=== PATIENT | female | born 1960 | race Caucasian/White ===

== ENCOUNTER 2018-01-15 17:16 | Outpatient (REF) | payer MEDICARE, MEDICAID, SELFPAY ==
[2018-01-15 20:56] LABS: Abs Immature Grans 0.01 k/cumm (0.0-0.09); Absolute Basophil Count 0.01 k/cumm (0.0-0.2); Absolute Eosinophil Count 0.01 k/cumm (0.0-0.7); Absolute Lymphocyte Count 2.43 k/cumm (1.2-3.4); Absolute Monocyte Count 0.82 k/cumm (0.11-0.7); Absolute Neutrophil Count 2.73 k/cumm (1.2-6.7); Basophils % 0.2; Eosinophils % 0.2; HCT 39.7 % (36.0-46.0); HGB 12.9 g/dL (12.0-15.5); Immature Grans % 0.2; Lymphocytes % 40.4; Mean Corp. HGB Concentration 32.5 g/dL (32.0-36.0); Mean Corpuscular Hemoglobin 29.6 pg (27.0-33.0); Mean Corpuscular Volume 91.1 fL (80-95); Mean Platelet Volume 11.1 fL (8.0-11.0); Monocytes % 13.6; Neutrophils % 45.4; Platelet Count 260 x1000/uL (130-400); RBC 4.36 m/cumm (4.00-5.20); RBC Distribution Width 13.8 % (11.7-14.6); White Blood Cell Count 6.01 k/cumm (4.4-10.8)
[2018-01-15 21:01] LABS: Albumin 3.7 g/dL (3.4-5.0); BUN 11 mg/dL (7-18); Bilirubin, Total 0.4 mg/dL (0.2-1.0); Chloride 99 mmol/L (98-107); Potassium 4.1 mmol/L (3.5-5.1); Sodium 138 mmol/L (136-145); Uric Acid 5.2 mg/dL (2.6-6.0)
[2018-01-15 21:40] LABS: ALT 32 U/L (12-78); AST 22 U/L (15-37); Alkaline Phosphatase 61 U/L (46-116); Anion Gap 7.5 mmol/L (3-11); CO2 31.5 mmol/L (21.0-32.0); CREATININE 0.69 mg/dL (0.55-1.02); Calcium 9.2 mg/dL (8.5-10.1); Glucose 94 mg/dL (70-100); Total Protein 7.2 g/dL (6.4-8.2)
== END 2018-01-15 17:36 ==
LOC: NCHCN 17:16
PROVIDERS: PCP Family Medicine; Visit Provider Family Medicine
DX: R15.1 Fecal smearing (principal); R10.9 Unspecified abdominal pain; M25.561 Pain in right knee
CPT/HCPCS: 80053; 84550; 85025

== ENCOUNTER 2021-03-22 11:02 | Outpatient (REF) | payer MEDICARE, MEDICAID, SELFPAY ==
[2021-03-22 20:37] LABS: Anion Gap 6.9 mmol/L (3-11); BUN 22 mg/dL (7-18); CO2 32.1 mmol/L (21.0-32.0); CREATININE 0.7 mg/dL (0.55-1.02); Calcium 8.7 mg/dL (8.5-10.1); Chloride 104 mmol/L (98-107); Glucose 93 mg/dL (74-106); Magnesium 1.8 mg/dL (1.8-2.4); Potassium 4.2 mmol/L (3.5-5.1); Sodium 143 mmol/L (136-145); TSH 1.84 uIU/mL (0.36-3.74); Vitamin B12 185 pg/mL (193-986)
[2021-03-22 21:11] LABS: Hemoglobin A1C 5.7 % (<5.7)
== END 2021-03-22 11:03 | disposition home or self-care (01) ==
LOC: NCHCN 11:02
PROVIDERS: PCP Family Medicine; Visit Provider Nurse Practitioner Family
DX: R73.03 Prediabetes (principal); R63.4 Abnormal weight loss; G40.909 Epilepsy, unspecified, not intractable, without status epilepticus; F32.9 Major depressive disorder, single episode, unspecified; Z79.899 Other long term (current) drug therapy
CPT/HCPCS: 80048; 82607; 83036; 83735; 84443

== ENCOUNTER 2021-06-08 20:42 | Outpatient (REF) | payer MEDICARE, MEDICAID, SELFPAY ==
[2021-06-08 20:38] LABS: Abs Immature Grans 0.01 10^3/uL (0.0-0.06); Absolute Basophil Count 0.02 10^3/uL (0.0-0.2); Absolute Eosinophil Count 0.02 10^3/uL (0.0-0.7); Absolute Lymphocyte Count 0.74 10^3/uL (1.2-3.4); Absolute Monocyte Count 0.58 10^3/uL (0.1-0.8); Absolute Neutrophil Count 2.45 10^3/uL (1.2-6.7); Basophils % 0.5; Eosinophils % 0.5; HCT 40.6 % (36.0-46.0); HGB 12.7 g/dL (11.2-15.7); Immature Grans % 0.3; Lymphocytes % 19.4; MCH 29.9 pg (27.0-33.0); MCHC 31.3 % (32.0-36.0); MCV 95.5 fL (80-95); MPV 12.2 fL (8.0-11.0); Monocytes % 15.2; Neutrophils % 64.1; Nucleated RBC 0 %; Platelet Count 222 10^3/uL (130-400); RBC 4.25 10^6/uL (3.93-5.22); RDW 13.2 % (11.7-14.6); RDW-SD 45.9 fL; WBC 3.82 10^3/uL (4.4-10.8)
[2021-06-08 21:31] LABS: ALT 14 U/L (14-59); AST 12 U/L (15-37); Alkaline Phosphatase 57 U/L (46-116); Anion Gap 6.2 mmol/L (3-11); BUN 30 mg/dL (7-18); Bilirubin, Total 0.5 mg/dL (0.2-1.0); CO2 32.8 mmol/L (21.0-32.0); CREATININE 0.8 mg/dL (0.55-1.02); Calcium 9.2 mg/dL (8.5-10.1); Chloride 102 mmol/L (98-107); Glucose 97 mg/dL (74-106); Potassium 3.8 mmol/L (3.5-5.1); Sodium 141 mmol/L (136-145); Total Protein 7.5 g/dL (6.4-8.2)
== END 2021-06-08 20:43 | disposition home or self-care (01) ==
LOC: NCHCN 20:42
PROVIDERS: PCP Family Medicine; Visit Provider Nurse Practitioner Family
DX: R73.03 Prediabetes (principal); R63.4 Abnormal weight loss; F32.9 Major depressive disorder, single episode, unspecified; E53.8 Deficiency of other specified B group vitamins
CPT/HCPCS: 80053; 85025

== ENCOUNTER 2021-09-15 13:16 | Outpatient (REF) | payer MEDICARE, MEDICAID, SELFPAY ==
[2021-09-15 16:14] LABS: Absolute Basophil Count 0.02 10^3/uL (0.0-0.2); Absolute Eosinophil Count 0.05 10^3/uL (0.0-0.7); Absolute Lymphocyte Count 1.11 10^3/uL (1.2-3.4); Absolute Monocyte Count 0.46 10^3/uL (0.1-0.8); Absolute Neutrophil Count 1.49 10^3/uL (1.2-6.7); Basophils % 0.6; Eosinophils % 1.6; HCT 39.5 % (36.0-46.0); HGB 12.2 g/dL (11.2-15.7); Lymphocytes % 35.5; MCH 29.8 pg (27.0-33.0); MCHC 30.9 % (32.0-36.0); MCV 97 fL (80-95); MPV 12.1 fL (8.0-11.0); Monocytes % 14.7; Neutrophils % 47.6; Platelet Count 199 10^3/uL (130-400); RBC 4.09 10^6/uL (3.93-5.22); RDW-SD 46.6 fL; WBC 3.13 10^3/uL (4.4-10.8)
[2021-09-15 19:19] LABS: VALPROIC ACID 66.2 ug/mL
[2021-09-15 19:43] LABS: Vitamin B12 824 pg/mL (193-986)
== END 2021-09-15 13:17 | disposition home or self-care (01) ==
LOC: NCHCN 13:16
PROVIDERS: PCP Family Medicine; Visit Provider Nurse Practitioner Family
DX: G40.909 Epilepsy, unspecified, not intractable, without status epilepticus (principal); Z51.81 Encounter for therapeutic drug level monitoring; R63.4 Abnormal weight loss; E53.8 Deficiency of other specified B group vitamins
CPT/HCPCS: 80164; 82607; 85025

== ENCOUNTER 2021-12-20 20:54 | Outpatient (REF) | payer MEDICARE, MEDICAID, SELFPAY ==
[2021-12-20 21:14] LABS: Abs Immature Grans 0.01 10^3/uL (0.0-0.06); Absolute Basophil Count 0.02 10^3/uL (0.0-0.2); Absolute Eosinophil Count 0.02 10^3/uL (0.0-0.7); Absolute Lymphocyte Count 0.75 10^3/uL (1.2-3.4); Absolute Monocyte Count 0.51 10^3/uL (0.1-0.8); Absolute Neutrophil Count 2.37 10^3/uL (1.2-6.7); Basophils % 0.5; Eosinophils % 0.5; HCT 39.1 % (36.0-46.0); HGB 12.8 g/dL (11.2-15.7); Immature Grans % 0.3; Lymphocytes % 20.4; MCH 30.5 pg (27.0-33.0); MCHC 32.7 % (32.0-36.0); MCV 93 fL (80-95); MPV 12.6 fL (8.0-11.0); Monocytes % 13.9; Neutrophils % 64.4; Platelet Count 216 10^3/uL (130-400); RDW 13.2 % (11.7-14.6); RDW-SD 45.3 fL; WBC 3.68 10^3/uL (4.4-10.8)
== END 2021-12-20 20:55 | disposition home or self-care (01) ==
LOC: NCHCN 20:54
PROVIDERS: PCP Family Medicine; Visit Provider Nurse Practitioner Family
DX: D72.819 Decreased white blood cell count, unspecified (principal)
CPT/HCPCS: 85025

== ENCOUNTER 2022-02-11 17:18 | Emergency (ER) | payer MEDICARE, MEDICAID, SELFPAY ==
[2022-02-11 17:28] VITALS: BP 147/81; PULSE 85; RESP 20; TEMP 36.8; O2SAT 95
--- NOTE | 2022-02-11 17:45 | DI.RAD_ITS ---
Exam(s) CT PELVIC WO XR HIP LT COMPLETE AP PELVIS EXAM: XR HIP LT COMPLETE AP PELVIS CLINICAL HISTORY: fall, left hip pain TECHNIQUE: COMPARISON: CT CT PELVIC WO from 02/11/2022 FINDINGS: Radiographs of the left hip and pelvis are interpreted in conjunction with a pelvic CT. 3 radiograph ic views were obtained. CT was obtained with multi slice acquisition and multiplanar reconstruction. There are fractures of the inferior and superior pubic rami. The superior pubic ramus fracture exten ds into the acetabulum centrally with no gross involvement of the articular surface. There is also a nondisplaced fracture of the sacrum on the left adjacent to the SI joint anteriorly. No hip fractur e identified. No additional pelvic fracture seen. Note is made of areas of sclerotic and mixed sclerotic/lytic radiodensity seen in the right iliac bon e and in the sacrum. These findings are nonspecific but the possibility of metastatic disease would have to be raised. Additional evaluation with bone scan is recommended. IMPRESSION: Superior and inferior pubic ramus fractures on the left with superior pubic ramus fracture extending into the acetabulum. Additionally there is a minimally displaced fracture of the sacrum adjacent to the anterior aspect of the left SI joint. Incidental sclerotic and mixed sclerotic/lytic lesions noted in the sacrum and in the pelvis on the r ight' There is some concern for metastatic disease, bone scan recommended for further evaluation. RADIATION DOSE DELIVERED: Total DLP
--- NOTE | 2022-02-11 17:45 | DI.RAD_ITS ---
Exam(s) XR LUMBAR SPINE AP, LAT EXAM: XR LUMBAR SPINE AP, LAT CLINICAL HISTORY: fall injury, low back pain TECHNIQUE: COMPARISON: No exams were available for comparison FINDINGS: Two views were obtained. There are marked degenerative changes of the lumbar spine with mild left co nvex lumbar scoliosis. No evidence of acute lumbar fracture. IMPRESSION: RADIATION DOSE DELIVERED: Total DLP
--- NOTE | 2022-02-11 17:57 | ED.GENADUL_ITS ---
Discharge Plan Disposition Patient Disposition: HOME W/HOME HEALTH SERVICE Condition: Stable Discharge Details Clinical Impression: Pelvic fracture Primary Care Provider: Justino Kumar ED Provider: Annelise Red Home Meds and New Rx's Prescriptions: Continued divalproex [Depakote] 250 mg Tablet,Delayed Release (Dr/Ec) 500 mg PO BID omeprazole 20 mg Capsule,Delayed Release(Dr/Ec) 20 mg PO DAILY sertraline 50 mg Tablet 75 mg PO DAILY aripiprazole [Abilify] 5 mg Tablet 5 mg PO DAILY quetiapine [Seroquel XR] 300 mg Tablet Extended Release 24 Hr 300 mg PO DAILY Myrbetriq 50 mg Tablet Extended Release 24 Hr 50 mg PO DAILY Discharge Instructions Instructions: Pelvic Fracture (ED) Additional Instructions: weight bearing has tolerated, use walker for gait safety and stability ibuprofen 600 mg qid with food for next 5 days with food, then as needed for pain can add acetaminophen 650 mg po qid for breakthrough pain can apply salon pas pain patches to affected areas as directed if helpful. Referrals: Justino Kumar [Primary Care Provider] - (1 week) Medical Decision Making Medical Records Medical records narrative: Mechanical fall with isolated left hip and low back pain. She has been ambulatory. We will check routine lab check Depakote level. UA due to back pain. X-rays to include left hip and pelvis and LS-spine. Reviewed and pelvic fracture noted. Case was discussed with Dr. Vela recommendations are for CAT scan and if she can safely be reambulated follow-up outpatient with orthopedics routine pain management Safely reambulated with a walker which will be provided at discharge. Her caregiver is in agreement with discharged home. Pain is managed after receiving Toradol 30 mg IV acetaminophen 1000 mg IV piggyback and application of 2 lidocaine patches. She will be discharged to home with home health services for further evaluation and recommendations Imaging Data Radiologic Study: Attestation: I personally reviewed and interpreted this imaging study as follows: Imaging: X-Ray (left hip and pelvis) Radiologist's impression: Exam(s) PROCEDURE INFORMATION: Exam: XR Left Hip Exam date and time: 02/11/2022 6:57 PM Age: 61 years old Clinical indication: Injury or trauma; Work related; Blunt trauma (contusions or hematomas); Injury date: 02/11/22; Injury details: Fall, left hip pain TECHNIQUE: Imaging protocol: Radiologic exam of the Left hip. Views: 2 or 3 views hip with pelvis when performed. COMPARISON: No relevant prior studies available. FINDINGS: Bones/joints: There is an acute minimally displaced fracture involving the superior pelvic ramus. The fracture is horizontally oriented and may extend to the acetabular rim. The left femur appears grossly intact. No evidence of joint dislocation. Soft tissues: Unremarkable. IMPRESSION: Minimally displaced fracture of the left superior pubic ramus as described. Dictated and Authenticated by: Joanne High MD. Ordering:STEVE Castelan MD Radiologic Study #2: Imaging: X-Ray (lumbar spine xray) Radiologist's impression: Exam(s) PROCEDURE INFORMATION: Exam: XR Lumbosacral Spine Exam date and time: 02/11/2022 6:58 PM Age: 61 years old Clinical indication: Injury or trauma; Blunt trauma (contusions or hematomas); Injury date: 02/11/22; Injury details: Fall, pain TECHNIQUE: Imaging protocol: Radiologic exam of the lumbosacral spine. Views: 2 or 3 views. COMPARISON: CR XR HIP LT COMPLETE AP PELVIS 02/11/2022 6:57 PM FINDINGS: Bones/joints: No acute fracture in the lumbar spine.? Grossly normal alignment. Soft tissues: Unremarkable. IMPRESSION: No acute findings in the lumbar spine. Dictated and Authenticated by: Joanne High MD. Ordering:STEVE Castelan MD Lab Data Lab results reviewed: Yes I reviewed the patient's lab results. HPI General Date/Time Provider Initiated Documentation: 02/11/22 17:24 . Information obtained by: family (Caregiver) and old records reviewed . HPI Narrative: 61-year-old female patient who lives with a caregiver who had a mechanical fall at home earlier this morning was given APAP for her symptoms continues to have pain complaining of left hip and low back pain. She presented to urgent care who referred her here for evaluation. She has been ambulatory. Denies any other injury. There was no loss of consciousness she has no C-spine tenderness no abdominal pain no other complaints she was previously in her usual state of health. Related Data Home Medications Medication Instructions Recorded Confirmed aripiprazole 5 mg tablet (Abilify) 5 mg PO DAILY 02/11/22 02/11/22 divalproex 250 mg tablet,delayed 500 mg PO BID 02/11/22 02/11/22 release (Depakote) mirabegron 50 mg tablet,extended 50 mg PO DAILY 02/11/22 02/11/22 release 24 hr (Myrbetriq) omeprazole 20 mg capsule,delayed 20 mg PO DAILY 02/11/22 02/11/22 release quetiapine 300 mg tablet,extended 300 mg PO DAILY 02/11/22 02/11/22 release 24 hr (Seroquel XR) sertraline 50 mg tablet 75 mg PO DAILY 02/11/22 02/11/22 Allergies Allergy/AdvReac Type Severity Reaction Status Date / Time Penicillins Allergy Severe Hives Unverified 02/11/22 17:32 aspirin Allergy Unknown Unverified 02/11/22 17:32 General Stated Complaint: Orthopedic RADHA: 3 Review of Systems All systems reviewed & are unremarkable except as noted in HPI and below Musculoskeletal Musculoskeletal: Reports back pain (Low back) and Reports arthralgias (Left hip) PFSH All Active Problems (Updated 02/11/22 @ 20:32 by Annelise Red NP) Pelvic fracture (Acute) Social History Smoking risk assessment performed?: No Exam Const General: cooperative, comfortable, no acute distress, frail appearing and ill a ppearing (Resting tremor) chronically Chest Chest: normal inspection of the chest Resp Effort & Inspection: normal respiratory effort and able to speak in complete sentences Cardio Rate: regular rate Rhythm: regular rhythm Back/Spine/Pelvis Cervical Spine: normal cervical lordosis Skin General skin exam: no rashes or lesions noted Neuro General: patient alert, patient awake, patient oriented x3, moves all extremities and no focal motor deficits Extrem General: normal to inspection and no pedal edema Right upper extremity: normal to inspection Left upper extremity: normal to inspection Right lower extremity: normal to inspection Left lower extremity: normal to inspection and hip/thigh Details: tenderness; no swelling and no deformity; no edema Course Vital Signs Vital signs: Vital Signs Temperature 36.8 C 02/11/22 17:28 Pulse 85 02/11/22 17:28 Respiratory Rate 20 02/11/22 17:28 Blood Pressure 147/81 H 02/11/22 17:28 Pulse Oximetry 95 02/11/22 17:28 Temperature 36.8 C 02/11/22 17:28 Pulse 85 10/07/22 17:28 Respiratory Rate 20 02/11/22 17:28 Blood Pressure 147/81 H 02/11/22 17:28 Pulse Oximetry 95 02/11/22 17:28 Oxygen Delivery Method Room Air 02/11/22 17:28 Oxygen Flow Rate 0 02/11/22 17:28 Pain Level 6 02/11/22 17:28
[2022-02-11] MEDS: Ketorolac 15 MG/ML VIAL IVP (18:21)
[2022-02-11 19:03] LABS: Ammonia 20 umol/L (11-32)
[2022-02-11 19:07] LABS: Abs Immature Grans 0.03 10^3/uL (0.0-0.06); Absolute Basophil Count 0.02 10^3/uL (0.0-0.2); Absolute Eosinophil Count 0.01 10^3/uL (0.0-0.7); Absolute Lymphocyte Count 0.61 10^3/uL (1.2-3.4); Absolute Neutrophil Count 5.52 10^3/uL (1.2-6.7); Basophils % 0.3; Eosinophils % 0.1; HCT 34.7 % (36.0-46.0); HGB 11.3 g/dL (11.2-15.7); Immature Grans % 0.4; Lymphocytes % 8.5; MCH 30.1 pg (27.0-33.0); MCHC 32.6 % (32.0-36.0); MCV 92 fL (80-95); MPV 11.7 fL (8.0-11.0); Monocytes % 13.9; Neutrophils % 76.8; Platelet Count 167 10^3/uL (130-400); RBC 3.76 10^6/uL (3.93-5.22); RDW 12.9 % (11.7-14.6); RDW-SD 43.8 fL; WBC 7.19 10^3/uL (4.4-10.8)
--- NOTE | 2022-02-11 19:25 | DI.VRAD_ITS ---
Addendum created by Joanne High MD on 02/11/2022 9:05:41 PM EDT: Upon further review, there is also a fracture in the left inferior pubic ramus, better evaluated on the follow-up CT. Initial report created on 02/11/2022 7:25:35 PM EDT: PROCEDURE INFORMATION: Exam: XR Left Hip Exam date and time: 02/11/2022 6:57 PM Age: 61 years old Clinical indication: Injury or trauma; Work related; Blunt trauma (contusions or hematomas); Injury date: 02/11/22; Injury details: Fall, left hip pain TECHNIQUE: Imaging protocol: Radiologic exam of the Left hip. Views: 2 or 3 views hip with pelvis when performed. COMPARISON: No relevant prior studies available. FINDINGS: Bones/joints: There is an acute minimally displaced fracture involving the superior pelvic ramus. The fracture is horizontally oriented and may extend to the acetabular rim. The left femur appears grossly intact. No evidence of joint dislocation. Soft tissues: Unremarkable. IMPRESSION: Minimally displaced fracture of the left superior pubic ramus as described. Dictated and Authenticated by: Joanne High MD. Ordering:STEVE Castelan MD
--- NOTE | 2022-02-11 19:29 | DI.VRAD_ITS ---
PROCEDURE INFORMATION: Exam: XR Lumbosacral Spine Exam date and time: 02/11/2022 6:58 PM Age: 61 years old Clinical indication: Injury or trauma; Blunt trauma (contusions or hematomas); Injury date: 02/11/22; Injury details: Fall, pain TECHNIQUE: Imaging protocol: Radiologic exam of the lumbosacral spine. Views: 2 or 3 views. COMPARISON: CR XR HIP LT COMPLETE AP PELVIS 02/11/2022 6:57 PM FINDINGS: Bones/joints: No acute fracture in the lumbar spine. Grossly normal alignment. Soft tissues: Unremarkable. IMPRESSION: No acute findings in the lumbar spine. Dictated and Authenticated by: Joanne High MD. Ordering:STEVE Castelan MD
[2022-02-11 19:31] LABS: Anion Gap 5.5 mmol/L (3-11); BUN 22 mg/dL (7-18); CO2 30.5 mmol/L (21.0-32.0); CREATININE 0.7 mg/dL (0.55-1.02); Chloride 102 mmol/L (98-107); Estimated GFR 97.12 (mL/min/1.73m2); Glucose 122 mg/dL (74-106); Sodium 138 mmol/L (136-145); VALPROIC ACID 56.5 ug/mL
[2022-02-11] MEDS: Lidocaine 5% Patch 2 PATCH TP (19:46)
[2022-02-11] MEDS: ACETAMINOPHEN 1,000 MG/100 ML BTL 400 MG IVPB (19:47)
--- NOTE | 2022-02-11 21:04 | DI.VRAD_ITS ---
PROCEDURE INFORMATION: Exam: CT Pelvis Without Contrast; Skeletal Exam date and time: 02/11/2022 8:09 PM Age: 61 years old Clinical indication: Injury or trauma; Fall; Fracture of pelvis \T\ hip; Left; Traumatic fracture; Pubis (pubic symphysis or rami); Not specified; Injury date: 02/11/22; Injury details: Fractured pelvis TECHNIQUE: Imaging protocol: Computed tomography of the pelvis without contrast. Exam focused on the skeleton. Radiation optimization: All CT scans at this facility use at least one of these dose optimization techniques: automated exposure control; mA and/or kV adjustment per patient size (includes targeted exams where dose is matched to clinical indication); or iterative reconstruction. COMPARISON: CR XR HIP LT COMPLETE AP PELVIS 02/11/2022 6:57 PM FINDINGS: Bones/joints: There is a minimally displaced horizontal fracture involving the left superior pubic ramus, which does extend to the acetabular rim, but does not appear to involve the articular surface of the hip joint (image 29, series 4). A minimally displaced fracture also seen in the left inferior pubic ramus. 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 There is a 1.7 cm round region of sclerosis in the right iliac wing and a focus of sclerosis seen in the left sacral ala measuring 1.3 cm. Soft tissues: Unremarkable. IMPRESSION: 1. Minimally displaced horizontal fracture of the left superior pubic ramus and minimally displaced fracture of the left inferior pubic ramus. No joint dislocation. 2. Nonspecific foci of sclerosis in the right iliac wing and left sacral ala, which are nonspecific. However, correlate with any underlying pathology to exclude osseous malignancy. Dictated and Authenticated by: Joanne High MD. Ordering:STEVE Castelan MD
[2022-02-11] MEDS: Divalproex 500 MG TABEC PO (21:53)
== END 2022-02-11 21:59 | disposition home health service (06) ==
PROVIDERS: Emergency Provider Nurse Practitioner Acute Care; PCP Family Medicine
DX: S32.9XXA Fracture of unspecified parts of lumbosacral spine and pelvis, initial encounter for closed fracture (principal); W19.XXXA Unspecified fall, initial encounter; Y92.009 Unspecified place in unspecified non-institutional (private) residence as the place of occurrence of the external cause
CPT/HCPCS: 80048; 96374; 96375; 99284; 72100; 72192; 73502; 80164; 82140; 85025; J0131; J1885; J3490

== ENCOUNTER 2022-10-13 17:54 | Outpatient (REF) | payer MEDICARE, MEDICAID, SELFPAY ==
[2022-10-13 18:11] LABS: Absolute Basophil Count 0.04 10^3/uL (0.0-0.2); Absolute Eosinophil Count 0.05 10^3/uL (0.0-0.7); Absolute Lymphocyte Count 0.81 10^3/uL (1.2-3.4); Absolute Monocyte Count 0.59 10^3/uL (0.1-0.8); Absolute Neutrophil Count 2.33 10^3/uL (1.2-6.7); Eosinophils % 1.3; HCT 39.9 % (36.0-46.0); HGB 12.9 g/dL (11.2-15.7); Lymphocytes % 21.2; MCH 30.4 pg (27.0-33.0); MCHC 32.3 % (32.0-36.0); MCV 94 fL (80-95); MPV 12.1 fL (8.0-11.0); Monocytes % 15.4; Neutrophils % 61.1; Platelet Count 210 10^3/uL (130-400); RBC 4.24 10^6/uL (3.93-5.22); RDW 13.5 % (11.7-14.6); RDW-SD 46.4 fL; WBC 3.82 10^3/uL (4.4-10.8)
[2022-10-13 18:47] LABS: BUN 26 mg/dL (7-18); CREATININE 0.7 mg/dL (0.55-1.02); Calcium 9.1 mg/dL (8.5-10.1); Calculated LDL 138 mg/dL (<100); Chloride 105 mmol/L (98-107); Cholesterol 207 mg/dL (<200); Estimated GFR 96.52 (mL/min/1.73m2); Glucose 91 mg/dL (74-106); HDL Cholesterol 51 mg/dL (40-60); Potassium 3.7 mmol/L (3.5-5.1); Sodium 143 mmol/L (136-145); TSH 0.96 uIU/mL (0.36-3.74); Triglyceride 93 mg/dL (<150); Vitamin B12 1264 pg/mL (193-986)
[2022-10-13 18:55] LABS: Hemoglobin A1C 5.7 % (<5.7)
== END 2022-10-13 17:55 | disposition home or self-care (01) ==
LOC: NCHCN 17:54
PROVIDERS: PCP Family Medicine; Visit Provider Nurse Practitioner Family
DX: D72.819 Decreased white blood cell count, unspecified (principal); R73.03 Prediabetes; E53.8 Deficiency of other specified B group vitamins; R63.4 Abnormal weight loss; F32.89 Other specified depressive episodes; Z79.899 Other long term (current) drug therapy; R79.89 Other specified abnormal findings of blood chemistry
CPT/HCPCS: 80048; 80061; 82607; 83036; 84443; 85025

== ENCOUNTER 2023-05-29 15:00 | Outpatient (REF) | payer MEDICARE, MEDICAID, SELFPAY ==
[2023-05-29 15:21] LABS: Absolute Basophil Count 0.03 10^3/uL (0.0-0.2); Absolute Eosinophil Count 0.08 10^3/uL (0.0-0.7); Absolute Lymphocyte Count 1.04 10^3/uL (1.2-3.4); Absolute Monocyte Count 0.48 10^3/uL (0.1-0.8); Absolute Neutrophil Count 1.35 10^3/uL (1.2-6.7); Eosinophils % 2.7; HCT 35.9 % (36.0-46.0); HGB 11.5 g/dL (11.2-15.7); Lymphocytes % 34.9; MCH 29.5 pg (27.0-33.0); MCV 92 fL (80-95); MPV 11.7 fL (8.0-11.0); Monocytes % 16.1; Neutrophils % 45.3; Platelet Count 214 10^3/uL (130-400); RDW 13.3 % (11.7-14.6); WBC 2.98 10^3/uL (4.4-10.8)
[2023-05-29 16:01] LABS: VALPROIC ACID 42.9 ug/mL
[2023-05-29 16:08] LABS: ALT 17 U/L (14-59); AST 14 U/L (15-37); Albumin 3.5 g/dL (3.4-5.0); Alkaline Phosphatase 47 U/L (46-116); Anion Gap 4.4 mmol/L (3-11); BUN 23 mg/dL (7-18); Bilirubin, Total 0.3 mg/dL (0.2-1.0); CO2 30.6 mmol/L (21.0-32.0); CREATININE 0.7 mg/dL (0.55-1.02); Calcium 9.4 mg/dL (8.5-10.1); Calculated LDL 145 mg/dL (<100); Chloride 104 mmol/L (98-107); Cholesterol 219 mg/dL (<200); Estimated GFR 95.92 (mL/min/1.73m2); Glucose 92 mg/dL (74-106); HDL Cholesterol 60 mg/dL (40-60); Potassium 4.5 mmol/L (3.5-5.1); Sodium 139 mmol/L (136-145); TSH (W/Ref FT4) 1.34 uIU/mL (0.36-3.74); Triglyceride 71 mg/dL (<150)
[2023-05-29 16:15] LABS: Hemoglobin A1C 5.6 % (<5.7)
== END 2023-05-29 15:01 | disposition home or self-care (01) ==
LOC: LBN 15:00
PROVIDERS: PCP Family Medicine; Visit Provider Psychiatry & Neurology Psychiatry
DX: Z79.899 Other long term (current) drug therapy (principal)
CPT/HCPCS: 80053; 80061; 80164; 83036; 84443; 85025

== ENCOUNTER 2024-04-26 20:19 | Outpatient (REF) | payer MEDICARE, MEDICAID, SELFPAY ==
[2024-04-26 17:29] LABS: Absolute Basophil Count 0.03 10^3/uL (0.0-0.2); Absolute Eosinophil Count 0.05 10^3/uL (0.0-0.7); Absolute Lymphocyte Count 0.68 10^3/uL (1.2-3.4); Absolute Monocyte Count 0.46 10^3/uL (0.1-0.8); Absolute Neutrophil Count 1.53 10^3/uL (1.2-6.7); Basophils % 1.1 %; Eosinophils % 1.8 %; HCT 41.1 % (36.0-46.0); HGB 13.1 g/dL (11.2-15.7); Lymphocytes % 24.7 %; MCH 30.1 pg (27.0-33.0); MCHC 31.9 % (32.0-36.0); MCV 95 fL (80-95); MPV 11.3 fL (8.0-11.0); Monocytes % 16.7 %; Neutrophils % 55.7 %; Platelet Count 223 10^3/uL (130-400); RBC 4.35 10^6/uL (3.93-5.22); RDW 13.3 % (11.7-14.6); RDW-SD 46.2 fL; WBC 2.75 10^3/uL (4.4-10.8)
[2024-04-26 17:47] LABS: VALPROIC ACID 61.8 ug/mL
[2024-04-26 17:50] LABS: Hemoglobin A1C 5.8 % (<5.7)
[2024-04-26 18:07] LABS: ALT 10 U/L (14-59); AST 9 U/L (15-37); Albumin 3.6 g/dL (3.4-5.0); Alkaline Phosphatase 58 U/L (46-116); BUN 24 mg/dL (7-18); Bilirubin, Total 0.27 mg/dL (0.2-1.0); CREATININE 0.7 mg/dL (0.55-1.02); Calcium 9.1 mg/dL (8.5-10.1); Calculated LDL 136 mg/dL (<100); Chloride 106 mmol/L (98-107); Cholesterol 216 mg/dL (<200); Estimated GFR 95.32 (mL/min/1.73m2); Glucose 76 mg/dL (74-106); HDL Cholesterol 67 mg/dL (40-60); Potassium 3.7 mmol/L (3.5-5.1); Sodium 145 mmol/L (136-145); TSH (W/Ref FT4) 1.51 uIU/mL (0.36-3.74); Total Protein 7.1 g/dL (6.4-8.2); Triglyceride 67 mg/dL (<150); Vitamin D 25 Total 14.6 ng/mL (30-100)
== END 2024-04-26 20:20 | disposition home or self-care (01) ==
LOC: LBN 20:19
PROVIDERS: PCP Family Medicine; Visit Provider Psychiatry & Neurology Psychiatry
DX: Z79.899 Other long term (current) drug therapy (principal); G40.309 Generalized idiopathic epilepsy and epileptic syndromes, not intractable, without status epilepticus
CPT/HCPCS: 80053; 80061; 82306; 80164; 83036; 84443; 85025

== ENCOUNTER 2024-09-16 15:04 | Outpatient (REF) | payer MEDICARE, MEDICAID, SELFPAY ==
[2024-09-16 22:17] LABS: HCT 37.5 % (36.0-46.0); HGB 12.1 g/dL (11.2-15.7); MCH 30.2 pg (27.0-33.0); MCHC 32.3 % (32.0-36.0); MCV 94 fL (80-95); MPV 12.3 fL (8.0-11.0); Platelet Count 236 10^3/uL (130-400); RBC 4.01 10^6/uL (3.93-5.22); RDW 13.2 % (11.7-14.6); RDW-SD 45.6 fL; WBC 4.08 10^3/uL (4.4-10.8)
[2024-09-16 22:49] LABS: ALT 12 U/L (14-59); AST 11 U/L (15-37); Albumin 3.5 g/dL (3.4-5.0); Alkaline Phosphatase 96 U/L (46-116); Anion Gap 5.5 mmol/L (3-11); BUN 22 mg/dL (7-18); Bilirubin, Total 0.2 mg/dL (0.2-1.0); CO2 29.5 mmol/L (21.0-32.0); CREATININE 0.7 mg/dL (0.55-1.02); Calcium 8.9 mg/dL (8.5-10.1); Chloride 103 mmol/L (98-107); Estimated GFR 95.32 (mL/min/1.73m2); Glucose 96 mg/dL (74-106); Potassium 4.2 mmol/L (3.5-5.1); Sodium 138 mmol/L (136-145); TSH 1.14 uIU/mL (0.36-3.74); Total Protein 7.2 g/dL (6.4-8.2)
[2024-09-16 22:59] LABS: Hemoglobin A1C 5.6 % (<5.7)
[2024-09-17 21:08] LABS: Calculated LDL 95 mg/dL (<100); Cholesterol 208 mg/dL (<200); HDL Cholesterol 53 mg/dL (>or=50); Triglyceride 301 mg/dL (<150); Vitamin B12 1385 pg/mL (193-986); Vitamin D 25 Total 12 ng/mL (30-100)
[2024-09-18 11:50] LABS: Hepatitis C Ab w Rflx HCV PCR Negative (Negative)
== END 2024-09-16 15:05 | disposition home or self-care (01) ==
LOC: NCHCN 15:04
PROVIDERS: PCP Family Medicine; Visit Provider Nurse Practitioner Family
DX: M85.89 Other specified disorders of bone density and structure, multiple sites (principal); R73.03 Prediabetes; E53.9 Vitamin B deficiency, unspecified; D72.819 Decreased white blood cell count, unspecified; Z13.29 Encounter for screening for other suspected endocrine disorder; Z11.59 Encounter for screening for other viral diseases
CPT/HCPCS: 80053; 80061; 82306; 85027; 86803; 82607; 83036; 84443

== ENCOUNTER 2025-01-14 15:08 | Outpatient (REF) | payer MEDICARE, MEDICAID, SELFPAY ==
[2025-01-14 15:18] LABS: Vitamin D 25 Total 22 ng/mL (30-100)
== END 2025-01-14 15:09 | disposition home or self-care (01) ==
LOC: NCHCN 15:08
PROVIDERS: PCP Family Medicine; Visit Provider Nurse Practitioner Family
DX: E55.9 Vitamin D deficiency, unspecified (principal)
CPT/HCPCS: 82306